=== PATIENT | male | born 1960 | race African-American/Black ===

== ENCOUNTER 2016-11-16 15:25 | Inpatient (IN) | payer OTHER ==
[2016-11-16 15:57] VITALS: BMI 25.1
--- NOTE | 2016-11-16 16:57 | HP ---
CIWA Score - CIWA Score Nausea/Vomitin Muscle Tremors: 3 Anxiety: 3 Agitation: 3 Paroxysmal Sweats: 2 Orientation: 0-Oriented Tacttile Disturbances: 2-Mild Itch/Numbness/Burn Auditory Disturbances: 2-Mild Harshness/Frighten Visual Disturbances: 2-Mild Sensitivity Headache: 2-Mild CIWA-Ar Total Score: 22 Admission ROS BHS - HPI Chief Complaint: I NEED HELP TO STOP DRINKING ALCOHOL,WITHDRAWAL SYMPTOM,LAST DETOX 08/24 LIAN KEN SYNCOPE ALCOHOL RELATED SEVERAL ADMISSIONS TO DETOX LONGEST PERIOD SOBRIETY 6 YEARS Allergies/Adverse Reactions: Allergies Allergy/AdvReac Type Severity Reaction Status Date / Time No Known Allergies Allergy Verified 11/16/16 17:02 - Ebola screening Have you traveled outside of the country in the last 21 days: No (N) Have you had contact with anyone from an Ebola affected area: No Have you been sick,other than usual withdrawal symptoms: No Do you have a fever: No - Review of Systems Constitutional: Loss of Appetite, Malaise, Night Sweats, Changes in sleep, Weakness, Unintentional Wgt. Loss EENT: reports: Nose Congestion Respiratory: reports: No Symptoms reported Cardiac: reports: Palpitations GI: reports: Diarrhea, Nausea, Abdominal cramping : reports: No Symptoms Reported Musculoskeletal: reports: Back Pain, Muscle Pain Neuro: reports: Headache, Tremors Endocrine: reports: No Symptoms Reported Hematology: reports: No Symptoms Reported Psychiatric: reports: No Sypmtoms Reported Patient History - Patient Medical History Hx Anemia: No Hx Asthma: No Hx Chronic Obstructive Pulmonary Disease (COPD): No Hx Cancer: No Hx Cardiac Disorders: No Hx Congestive Heart Failure: No Hx Hypertension: No Hx Hypercholesterolemia: No Hx Pacemaker: No HX Cerebrovascular Accident: No Hx Seizures: No Hx Dementia: No Hx Diabetes: No Hx Gastrointestinal Disorders: No Hx Liver Disease: No Hx Genitourinary Disorders: No Hx Sexually Transmitted Disorders: No Hx Renal Disease (ESRD): No Hx Thyroid Disease: No Hx Human Immunodeficiency Virus (HIV): No (LAST 2014 NEGATIVE) Hx Hepatitis C: No Hx Depression: No Hx Suicide Attempt: No Hx Bipolar Disorder: No Hx Schizophrenia: No Other Medical History: NO SUICIDAL,NO HOMICIDAL - Patient Surgical History Past Surgical History: No - PPD History Documented Results: Negative w/o proof Implanted On Prior [facility] Admission?: No PPD to be Administered?: Yes - Smoking Cessation Smoking history: Never smoked - Substance & Tx. History Hx Alcohol Use: Yes Hx Substance Use: No Substance Use Type: Alcohol Hx Substance Use Treatment: Yes (08/24 [facility]) - Substances Abused Alcohol Route: Oral Frequency: Daily Amount used: I PINT OF GIN/5 OF 40 OZS OF BEER Age of first use: 33 Date of Last Use: 11/16/16 Family Disease History - Family Disease History Family History: Denies Admission Physical Exam [facility] - Vital Signs Vital Signs: Vital Signs - 24 hr 11/16/16 15:55 Temperature 96.6 F L Pulse Rate 80 Respiratory 18 Rate Blood Pressure 141/90 - Physical General Appearance: Yes: Moderate Distress, Tremorous, Sweating, Anxious HEENTM: Yes: Nasal Congestion Respiratory: Yes: Lungs Clear Neck: Yes: Within Normal Limits Breast: Yes: Within Normal Limits Cardiology: Yes: Regular Rhythm, Regular Rate, S1, S2 Abdominal: Yes: Normal Bowel Sounds, Non Tender, Flat, Soft Genitourinary: Yes: Within Normal Limits Back: Yes: Muscle Spasm Musculoskeletal: Yes: Back pain, Muscle Pain Extremities: Yes: Tremors Neurological: Yes: bottom turning lathe tender II-XII NML intact, Fully Oriented, Alert, Motor Strength 5/5 Integumentary: Yes: Dry Lymphatic: Yes: Within Normal Limits - Diagnostic (1) Alcohol dependence with uncomplicated withdrawal Current Visit: Yes Status: Acute (2) Syncope Current Visit: Yes Status: Acute (3) Weight loss Current Visit: Yes Status: Acute Cleared for Admission [facility] - Detox or Rehab [facility] Level of Care: Medically Managed Detox Regimen/Protocol: Librium [facility] Breath Alcohol Content Breath Alcohol Content: 0 Urine Drug Screen - Results Drug Screen Negative: No Urine Drug Screen Results: BZO-Benzodiazepines, TCA-Tricyclic Antidepress
[2016-11-16] MEDS ORDERED: hydrOXYzine PAMOATE 25 MG CAPSULE (FP) PO PRN (17:11)
[2016-11-16] MEDS ORDERED: guaiFENesin/D-METHORPHAN HB 10 ML UNIT-DOSE CUPS PO PRN (17:11)
[2016-11-16] MEDS ORDERED: chlordiazePOXIDE HCL 25 MG CAPSULE PO ONE (17:11)
[2016-11-16] MEDS ORDERED: ACETAMINOPHEN 325 MG TABLET (FP) PO PRN (17:11)
[2016-11-16] MEDS ORDERED: MAGNESIUM HYDROX 2400MG/30ML ORAL SUSPENSION 30 ML CUP PO PRN (17:11)
[2016-11-16] MEDS ORDERED: chlordiazePOXIDE HCL 25 MG CAPSULE PO PRN (17:11)
[2016-11-16] MEDS ORDERED: MAGNESIUM CITRATE 300 ML BOTTLE PO PRN (17:11)
[2016-11-16] MEDS ORDERED: MENTHOL/PHENOL 1 EACH UD MM PRN (17:11)
[2016-11-16] MEDS ORDERED: IBUPROFEN 400 MG TABLET (FP) PO PRN (17:11)
[2016-11-16] MEDS ORDERED: P-EPHED 60MG/TRIPROLIDI 2.5MG TABLET PO PRN (17:11)
[2016-11-16] MEDS ORDERED: LOPERAMIDE HCL 2 MG CAPSULE PO PRN (17:11)
[2016-11-16] MEDS ORDERED: MAG HYDROX/AL HYDROX/SIMETH 30 ML UNIT-DOSE CUP PO PRN (17:11)
[2016-11-16] MEDS: chlordiazePOXIDE HCL 25 MG CAPSULE PO SCH (22:14)
[2016-11-16] MEDS: diphenhydrAMINE HCL 50 MG CAPSULE PO PRN (22:14)
[2016-11-16] MEDS: THIAMINE HCL 100 MG TABLET (FP) PO SCH (22:14)
[2016-11-17] MEDS: chlordiazePOXIDE HCL 25 MG CAPSULE PO SCH ×4 (05:28→22:07)
[2016-11-17 10:04] LABS: MCH 20.8 pg (25.7-33.7); MCHC 31.6 g/dl (32.0-35.9); MEAN CELL VOLUME 65.8 fl (80-96); PLATELET COUNT 242 K/MM3 (134-434); RDW 16.9 % (11.9-15.9)
[2016-11-17] MEDS: PRENATAL VITAMINS W/ FOLIC ACID TABLET (FP) PO SCH (10:10)
[2016-11-17 10:18] LABS: ALBUMIN 3.4 g/dl (3.4-5.0); ALK PHOS 59 U/L (45-117); ANION GAP 8 (8-16); BILIRUBIN,TOTAL 0.5 mg/dL (0.2-1.0); CALCIUM 8.4 mg/dL (8.5-10.1); CO2 29 mmol/L (21-32); CREATININE 0.9 mg/dL (0.7-1.3); GLUCOSE,RANDOM 99 mg/dL (74-106); SGOT/AST 14 U/L (15-37); SGPT/ALT 17 U/L (12-78); TOT PROT 6.6 g/dl (6.4-8.2)
[2016-11-17 11:30] LABS: ANISOCYTOSIS 1+; HYPOCHROMIA 1+; MICROCYTOSIS 1+; OVALOCYTES 1+; POIKILOCYTOSIS 1+; TARGET CELLS 1+
--- NOTE | 2016-11-17 11:36 | PN ---
[facility] CIWA - CIWA Score Nausea/Vomitin Muscle Tremors: 3 Anxiety: 3 Agitation: 2 Paroxysmal Sweats: 1-Minimal Palms Moist Orientation: 0-Oriented Tacttile Disturbances: 1-Very Mild Itch/Numbness Auditory Disturbances: 1-Very Mild Visual Disturbances: 1-Very Mild Sensitivity Headache: 2-Mild CIWA-Ar Total Score: 17 BHS Progress Note (SOAP) Subjective: ALERT,IRRITABLE,ANXIOUS,INTERRUPTED SLEEP,TREMOR Objective: 11/17/16 11:34 Vital Signs Temperature 96.4 F L 11/17/16 09:50 Pulse Rate 64 11/17/16 09:50 Respiratory Rate 20 11/17/16 09:50 Blood Pressure 144/91 11/17/16 09:50 O2 Sat by Pulse Oximetry (%) EKG NSR,NORMAL ECG Laboratory Last Values WBC 4.0 K/mm3 (4.0-10.0) 11/17/16 06:30 RBC 5.30 M/mm3 (4.00-5.60) 11/17/16 06:30 Hgb 11.0 GM/dL (11.7-16.9) L 11/17/16 06:30 Hct 34.9 % (35.4-49) L 11/17/16 06:30 MCV 65.8 fl (80-96) L 11/17/16 06:30 MCHC 31.6 g/dl (32.0-35.9) L 11/17/16 06:30 RDW 16.9 % (11.9-15.9) H 11/17/16 06:30 Plt Count 242 K/MM3 (134-434) 11/17/16 06:30 MPV 8.0 fl (7.5-11.1) 11/17/16 06:30 Hypochromic-Microcytic 1+ 11/17/16 06:30 Poikilocytosis 1+ 11/17/16 06:30 Anisocytosis 1+ 11/17/16 06:30 Microcytosis 1+ 11/17/16 06:30 Target Cells 1+ 11/17/16 06:30 Ovalocytes 1+ 11/17/16 06:30 Morphology Comment Slide scanned 11/17/16 06:30 Sodium 141 mmol/L (136-145) 11/17/16 06:30 Potassium 3.9 mmol/L (3.5-5.1) 11/17/16 06:30 Chloride 104 mmol/L (98-107) 11/17/16 06:30 Carbon Dioxide 29 mmol/L (21-32) 11/17/16 06:30 Anion Gap 8 (8-16) 11/17/16 06:30 BUN 8 mg/dL (7-18) 11/17/16 06:30 Creatinine 0.9 mg/dL (0.7-1.3) 11/17/16 06:30 Creat Clearance w eGFR > 60 (>60) 11/17/16 06:30 Random Glucose 99 mg/dL (74-106) 11/17/16 06:30 Calcium 8.4 mg/dL (8.5-10.1) L 11/17/16 06:30 Total Bilirubin 0.5 mg/dL (0.2-1.0) 11/17/16 06:30 AST 14 U/L (15-37) L 11/17/16 06:30 ALT 17 U/L (12-78) 11/17/16 06:30 Alkaline Phosphatase 59 U/L (45-117) 11/17/16 06:30 Total Protein 6.6 g/dl (6.4-8.2) 11/17/16 06:30 Albumin 3.4 g/dl (3.4-5.0) 11/17/16 06:30 RPR Titer Nonreactive (NONREACTIVE) 11/17/16 06:30 Assessment: 11/17/16 11:35 WITHDRAWAL SYMPTOM Plan: CONTINUE DETOX
[2016-11-17 16:41] LABS: URINE APPEARANCE CLEAR; URINE BILIRUBIN NEGATIVE (NEGATIVE); URINE BLOOD NEGATIVE (NEGATIVE); URINE COLOR YELLOW; URINE GLUCOSE (UA) NEGATIVE (NEGATIVE); URINE KETONE NEGATIVE (NEGATIVE); URINE NITRITE NEGATIVE (NEGATIVE); URINE PROTEIN NEGATIVE (NEGATIVE); URINE UROBILINOGEN NEGATIVE E.U./dl (0.2-1.0)
[2016-11-17 16:42] LABS: URINE LEUK ESTERASE TRACE (NEGATIVE)
[2016-11-17 16:47] LABS: URINE MUCUS RARE; URINE RBC <1 /hpf (0-3); URINE WBC 2 /hpf (3-5)
[2016-11-17] MEDS: diphenhydrAMINE HCL 50 MG CAPSULE PO PRN (22:07)
[2016-11-17] MEDS: THIAMINE HCL 100 MG TABLET (FP) PO SCH (22:07)
[2016-11-18] MEDS: chlordiazePOXIDE HCL 25 MG CAPSULE PO SCH ×3 (05:26→17:29)
--- NOTE | 2016-11-18 09:56 | PN ---
[facility] CIWA - CIWA Score Nausea/Vomitin Muscle Tremors: 3 Anxiety: 3 Agitation: 2 Paroxysmal Sweats: 1-Minimal Palms Moist Orientation: 0-Oriented Tacttile Disturbances: 1-Very Mild Itch/Numbness Auditory Disturbances: 1-Very Mild Visual Disturbances: 1-Very Mild Sensitivity Headache: 2-Mild CIWA-Ar Total Score: 17 BHS Progress Note (SOAP) Subjective: ALERT,IRRITABLE,ANXIOUS,INTERRUPTED SLEEP,TREMOR Objective: 11/18/16 09:55 Vital Signs Temperature 96.0 F L 11/18/16 09:33 Pulse Rate 70 11/18/16 09:33 Respiratory Rate 18 11/18/16 09:33 Blood Pressure 116/79 11/18/16 09:33 O2 Sat by Pulse Oximetry (%) Assessment: 11/18/16 09:55 WITHDRAWAL SYMPTOM Plan: CONTINUE DETOX,HISTORY OF ANEMIA USED TO TAKE IRON TO GIVE FERROUS SULFATE 325 MGS PO BID
[2016-11-18] MEDS: PRENATAL VITAMINS W/ FOLIC ACID TABLET (FP) PO SCH (10:10)
[2016-11-18] MEDS: FERROUS SO4 325 MG TABLET (FP) PO SCH ×2 (10:59→22:11)
[2016-11-18] MEDS: chlordiazePOXIDE 5 MG CAPSULE PO SCH (22:11)
[2016-11-18] MEDS: diphenhydrAMINE HCL 50 MG CAPSULE PO PRN (22:11)
[2016-11-18] MEDS: THIAMINE HCL 100 MG TABLET (FP) PO SCH (22:11)
[2016-11-19] MEDS: chlordiazePOXIDE 5 MG CAPSULE PO SCH ×3 (05:26→17:25)
--- NOTE | 2016-11-19 09:04 | PN ---
S Progress Note (SOAP) Subjective: ALERT,IRRITABLE,INTERRUPTED SLEEP Objective: 11/19/16 09:05 Vital Signs Temperature 96.9 F L 11/19/16 06:27 Pulse Rate 68 11/19/16 06:27 Respiratory Rate 16 11/19/16 06:27 Blood Pressure 115/82 11/19/16 06:27 O2 Sat by Pulse Oximetry (%) Assessment: 11/19/16 09:05 WITHDRAWAL SYMPTOM Plan: CONTINUE DETOX
[2016-11-19] MEDS: PRENATAL VITAMINS W/ FOLIC ACID TABLET (FP) PO SCH (10:10)
[2016-11-19] MEDS: FERROUS SO4 325 MG TABLET (FP) PO SCH ×2 (10:10→22:30)
--- NOTE | 2016-11-19 10:19 | EKG ---
Test Reason : Blood Pressure : / mmHG Vent. Rate : 064 BPM Atrial Rate : 064 BPM P-R Int : 164 ms QRS Dur : 080 ms QT Int : 378 ms P-R-T Axes : 061 048 041 degrees QTc Int : 389 ms NORMAL SINUS RHYTHM NORMAL ECG NO PREVIOUS ECGS AVAILABLE Confirmed by RILEY SAMAYOA, ELIAS ([id number]) on 11/19/2016 10:19:12 AM Referred By: Confirmed By:ELIAS LIN MD
[2016-11-19] MEDS: diphenhydrAMINE HCL 50 MG CAPSULE PO PRN (22:30)
[2016-11-19] MEDS: THIAMINE HCL 100 MG TABLET (FP) PO SCH (22:30)
[2016-11-19] MEDS: chlordiazePOXIDE HCL 10 MG CAPSULE PO SCH (22:31)
[2016-11-20] MEDS: chlordiazePOXIDE HCL 10 MG CAPSULE PO SCH (05:32)
[2016-11-20 06:39] VITALS: BP 110/73; PULSE 67; TEMP 97.6
--- NOTE | 2016-11-20 08:23 | PN ---
S Progress Note (SOAP) Subjective: ALERT,NO COMPLAINT Objective: 11/20/16 08:21 Vital Signs Temperature 97.6 F 11/20/16 06:39 Pulse Rate 67 11/20/16 06:39 Respiratory Rate 16 11/20/16 06:39 Blood Pressure 110/73 11/20/16 06:39 O2 Sat by Pulse Oximetry (%) Assessment: 11/20/16 08:21 DETOX COMPLETED,NO WITHDRAWAL SYMPTOM 11/20/16 08:22 Plan: DISCHARGE TODAY,FOLLOW IP WITH AFTER CARE PROGRAM ARRANGEMENT
--- NOTE | 2016-11-20 08:25 | DS ---
[facility] Detox Discharge Summary Admission Date: 11/16/16 Discharge Date: 11/20/16 - History Present History: Alcohol Dependence Additional Comments: FOLLOW UP WITH AFTER [facility] PROGRAM ARRANGEMENT AND PMD FOR MEDICAL PROBLEM Pertinent Past History: SYNCOPE WEIGHT LOSS ANEMIA - Physical Exam Results Vital Signs: Vital Signs Temperature 97.6 F 11/20/16 06:39 Pulse Rate 67 11/20/16 06:39 Respiratory Rate 16 11/20/16 06:39 Blood Pressure 110/73 11/20/16 06:39 O2 Sat by Pulse Oximetry (%) Pertinent Admission Physical Exam Findings: WITHDRAWAL SYMPTOM - Treatment Hospital Course: Detox Protocol Followed, Detoxed Safely, Responded well, Discharged Condition Good, Rehab Referral Accepted Patient has Accepted a Rehab Referral to: [facility] - Diagnosis (1) Alcohol dependence with uncomplicated withdrawal Current Visit: Yes Status: Acute (2) Syncope Current Visit: Yes Status: Acute (3) Weight loss Current Visit: Yes Status: Acute - AMA Did Patient Leave Against Medical Advice: No
== END 2016-11-20 08:55 | disposition home or self-care (01) | DRG 775 ==
LOC: YASAS 15:25 → Y3N 17:10
PROVIDERS: ADMIT Internal Medicine; ATTEND Internal Medicine
PROC: HZ2ZZZZ Detoxification Services for Substance Abuse Treatment (ICD-10-PCS; principal; 2016-11-16)
DX: F10.230 Alcohol dependence with withdrawal, uncomplicated (principal); Z86.79 Personal history of other diseases of the circulatory system; Z87.898 Personal history of other specified conditions
CPT/HCPCS: 36415; 80053; 81003; 81015; 85027; 86593; 93005; 93010

== ENCOUNTER 2019-10-11 17:29 | Inpatient (IN) | payer OTHER ==
[2019-10-11 18:16] VITALS: BMI 19.2
--- NOTE | 2019-10-11 20:55 | HP ---
"COWS - Scale Resting Pulse: 1= MO 81-100 Sweatin=Flushed/Facial Moisture Restless Observation: 1= Difficult to Sit Still Pupil Size: 1= Pupils >than Normal (Pupils = 3 mm) Bone or Joint Aches: 1= Mild Discomfort Runny Nose/ Eye Tearin= Nasal Congestion GI Upset > 30mins: 2= Nausea/Diarrhea (Diarrhea w/o vomiting) Tremor Observation: 4= Gross Tremor/Twitching Yawning Observation: 0= None Anxiety or Irritability: 1=Feels Anxious/Irritable Goose Flesh Skin: 0=Smooth Skin COWS Score: 14 CIWA Score Nausea/Vomitin-No Nausea/No Vomiting Muscle Tremors: 4-Moderate,w/Arms Extend Anxiety: 3 Agitation: 4-Moderately Restless Paroxysmal Sweats: 3 (Increased facial moisture) Orientation: 0-Oriented Tacttile Disturbances: 0-None Auditory Disturbances: 0-None Visual Disturbances: 0-None Headache: 0-None Present CIWA-Ar Total Score: 14 - Admission Criteria [facility] Guidelines: Admission for Medically Managed Detox: Requires at least one of the followin. CIWA greater than 12 2. Seizures within the past 24 hours 3. Delirium tremens within the past 24 hours 4. Hallucinations within the past 24 hours 5. Acute intervention needed for co occurring medical disorder 6. Acute intervention needed for co occurring psychiatric disorder 7. Severe withdrawal that cannot be handled at a lower level of care (continued vomiting, continued diarrhea, abnormal vital signs) requiring intravenous medication and/or fluids 8. Patient presents the following: CIWA greater than 12 Admission Criteria Met: Admission criteria met Admitting History and Physical - Smoking History Smoking history: Current every day smoker Aproximately how many cigarettes per day: 4 - Alcohol/Substance Use Hx Alcohol Use: Yes Admission ROS S - HPI Chief Complaint: States I'm here for detox. Allergies/Adverse Reactions: Allergies Allergy/AdvReac Type Severity Reaction Status Date / Time No Known Allergies Allergy Verified 10/11/19 18:03 History of Present Illness: Patient was seen in [place] ED earlier, where he presented for admission to detox. Told there were no beds available and arrangements were made for his to come to [facility]. No meds were given and no tests were performed during the ED visit. Discharged w/ dx: opioid abuse. 59 yo presents w/ alcohol and opioid use withdrawal and seeking detox. States I want to stop drinking and using drugs. Last [facility] visit 2017. MYNOR: 0.0 UTox: = MIKA/FEN/MOP/MTD/BAR/BZO Denies seizures. 2 blackous. Last 1 yr ago. 2 OD's. Last 3 months ago. States falls r/t intoxication. Alcohol use began at age 38. Currently drinks 3-40 oz beers daily x 5 years. States gets shakes after 1/2 day, if doesn't drink Xanax/Benzo use since age 59. Currently using x 3 months. States 4 sticks daily. Heroin use since age 43 and increased to in 50's. Now using 2-4 bags/day. Nasal. Has a Narcan kit. Methadone use since age 59. States has been buying out in street. States last used 3 days ago. Cocaine use since age 48. states uses 1-2x/month. Barbiturates - unsure - was taking anything and everything Denies nicotine use. PMHx: Denies. MHHx: Depression. Insomnia. Last saw a Psych 2 months ago - but not any longer - gets fro ED. States compliant w/ MH meds and last took haldol, zoloft and seroquel on 10/10/19. Denies thoughts of harming self or others. SHx: Domiciled. Unemployed. Denies legal issues. Patient Name: Epi Orona Date: 1960 Address: [address] [place] [address] Sex: Male Rx Written Rx Dispensed Drug Quantity Days Supply Prescriber Name 05/24/2019 05/24/2019 buprenorphine-naloxone 8-2 mg sl film 9 3 LaksLyle MD 05/24/2019 05/24/2019 chlordiazepoxide 10 mg capsule 35 3 LaksLyle MD Search Terms: Epi Rodriguez, 1960 Search Date: 10/11/2019 08:46:47 PM States Searched: [place], [place], [place], [place], [place], [place] The Drug Utilization Report below displays the controlled substance prescriptions, if any, that were dispensed in the indicated state(s). The information displayed on this report is compiled from requests submitted to other states' PMPs, and accurately reflects the information as returned by them. Blank ire[place] indicate data not provided by other state. This report was requested by: Barbie Monahan | Reference #: [id number] There are no results for the search terms that you entered. Exam Limitations: No Limitations - Ebola screening Have you traveled outside of the country in the last 21 days: No (N) Have you had contact with anyone from an Ebola affected area: No Have you been sick,other than usual withdrawal symptoms: No Do you have a fever: No - Review of Systems Constitutional: Chills, Changes in sleep (Difficulty falling and staying asleep) , Unintentional Wgt. Loss EENT: reports: Blurred Vision, Nose Congestion Respiratory: reports: No Symptoms reported Cardiac: reports: No Symptoms Reported GI: reports: Diarrhea (loose, villarreal colored), Indigestion (no recent exacerbation) : reports: No Symptoms Reported Musculoskeletal: reports: Back Pain (r/t withdrawal), Other (Bone pain.) Integumentary: reports: No Symptoms Reported Neuro: reports: Tremors Endocrine: reports: Increased Thirst Hematology: reports: No Symptoms Reported Psychiatric: reports: Mood/Affect Appropiate, Orientated x3, Agitated, Anxious, Depressed (Denies thoughts of harming self or others.) Patient History - Patient Medical History Hx Anemia: No Hx Asthma: Yes Hx Chronic Obstructive Pulmonary Disease (COPD): No Hx Cancer: No Hx Cardiac Disorders: No Hx Congestive Heart Failure: No Hx Hypertension: No Hx Hypercholesterolemia: No Hx Pacemaker: No HX Cerebrovascular Accident: No Hx Seizures: No Hx Dementia: No Hx Diabetes: No Hx Gastrointestinal Disorders: No Hx Liver Disease: No Hx Genitourinary Disorders: No Hx Sexually Transmitted Disorders: No Hx Renal Disease (ESRD): No Hx Thyroid Disease: No Hx Human Immunodeficiency Virus (HIV): No (LAST 2014 NEGATIVE) Hx Hepatitis C: No Hx Depression: No Hx Suicide Attempt: No Hx Bipolar Disorder: No Hx Schizophrenia: No - Patient Surgical History Past Surgical History: No Hx Neurologic Surgery: No Hx Cataract Extraction: No Hx Cardiac Surgery: No Hx Lung Surgery: No Hx Breast Surgery: No Hx Breast Biopsy: No Hx Abdominal Surgery: No Hx Appendectomy: No Hx Cholecystectomy: No Hx Genitourinary Surgery: No Hx Section: No Hx Orthopedic Surgery: No Anesthesia Reaction: No - PPD History Previous Implant?: Yes Documented Results: Negative w/proof Implanted On Prior R Admission?: Yes Date: 01/10/17 PPD to be Administered?: Yes - Smoking Cessation Smoking history: Former smoker Have you smoked in the past 12 months: No Aproximately how many cigarettes per day: 0 Cigars Per Day: 0 Hx Chewing Tobacco Use: No Initiated information on smoking cessation: No - Substance & Tx. History Hx Alcohol Use: Yes Hx Substance Use: Yes Substance Use Type: Alcohol, Cocaine, Heroin, Opiates, Tranquilizers Hx Substance Use Treatment: Yes (detox, rehabs, [facility]MTP - 10 years ago. ) - Substances abused Alcohol Substance route: Oral Frequency: Daily Amount used: (3) 40oz of beers Age of first use: 38 Date of last use: 10/10/19 Alprazolam (Xanax) Substance route: Oral Frequency: Daily Amount used: 4 sticks Age of first use: 59 Date of last use: 10/10/19 Heroin Substance route: Inhalation Frequency: Daily Amount used: 2 -3 bags Age of first use: 49 Date of last use: 10/10/19 Admission Physical Exam S - Vital Signs Vital Signs: Vital Signs - 24 hr 10/11/19 18:04 Temperature 97.4 F L Pulse Rate 94 H Respiratory 18 Rate Blood Pressure 145/93 - Physical General Appearance: Yes: Mild Distress, Thin, Tremorous, Sweating (Increased facial moisture), Anxious HEENTM: Yes: EOMI, Hearing grossly Normal, Normocephalic, Normal Voice, ROSIE ( Pupils = 3 mm), Pharynx Normal Respiratory: Yes: Lungs Clear (Pulse Ox = 97 %), Normal Breath Sounds, No Respiratory Distress Neck: Yes: No masses,lesions,Nodules, Supple Breast: Yes: Breast Exam Deferred Cardiology: Yes: Regular Rhythm, Regular Rate, S1, S2, Murmur Abdominal: Yes: Non Tender, Flat, Soft, Increased Bowel Sounds Genitourinary: Yes: Within Normal Limits Back: Yes: Normal Inspection Musculoskeletal: Yes: full range of Motion, Gait Steady Extremities: Yes: Normal Capillary Refill (Peripheral pulses +) Neurological: 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 (2) Opioid dependence with withdrawal Current Visit: Yes Status: Acute (3) Alcohol dependence with uncomplicated withdrawal Current Visit: Yes Status: Acute (4) Weight loss Current Visit: Yes Status: Chronic Cleared for Admission S - Detox or Rehab [facility] Level of Care: Medically Managed Detox Regimen/Protocol: Methadone/Valium Claeared for Rehab Admission: No Breathalyzer - Breathalyzer Breathalyzer: 0 Urine Drug Screen - Test Device Lot number: [id number] Expiration date: 06/08/21 - Control Is test valid?: Yes - Results Drug screen NEGATIVE: No Urine drug screen results: MIKA-Cocaine, FEN-Fentanyl, MOP-Opiates, MTD-Methadone , BAR-Barbiturates, BZO-Benzodiazepines Inpatient Rehab Admission - Rehab Decision to Admit Inpatient rehab admission?: No"
[2019-10-11] MEDS ORDERED: cloNIDine HCL 0.1 MG TABLET PO PRN (21:45)
[2019-10-11] MEDS ORDERED: BISMUTH SUBSALICYLATE 524 MG/30 ML UD PO PRN (21:45)
[2019-10-11] MEDS ORDERED: diazePAM 5 MG TABLET PO PRN (21:45)
[2019-10-11] MEDS ORDERED: ACETAMINOPHEN 325 MG TABLET (FP) PO PRN ×2 (21:45)
[2019-10-11] MEDS ORDERED: MENTHOL/PHENOL 1 EACH UD MM PRN (21:45)
[2019-10-11] MEDS ORDERED: MAG HYDROX/AL HYDROX/SIMETH 30 ML UNIT-DOSE CUP PO PRN (21:45)
[2019-10-11] MEDS ORDERED: IBUPROFEN 400 MG TABLET (FP) PO PRN (21:45)
[2019-10-11] MEDS ORDERED: MAGNESIUM CITRATE 300 ML BOTTLE PO PRN (21:45)
[2019-10-11] MEDS ORDERED: MAGNESIUM HYDROX 2400MG/30ML ORAL SUSPENSION 30 ML CUP PO PRN (21:45)
[2019-10-11] MEDS: THIAMINE HCL 100 MG TABLET (FP) PO SCH (22:31)
[2019-10-11] MEDS: diazePAM 5 MG TABLET PO SCH (22:46)
[2019-10-11] MEDS ORDERED: METHADONE HCL 10 MG TABLET (FOR DETOX USE ONLY) PO ONE (23:00)
[2019-10-12] MEDS: MELATONIN 5 MG TABLETS PO PRN ×2 (00:43→22:10)
[2019-10-12] MEDS: diazePAM 5 MG TABLET PO SCH ×3 (05:25→22:10)
[2019-10-12] MEDS ORDERED: METHADONE HCL 5 MG TABLET (FOR DETOX USE ONLY) PO ONE (10:00)
[2019-10-12] MEDS: PRENATAL VITAMINS W/ FOLIC ACID TABLET (FP) PO SCH (10:05)
[2019-10-12 10:36] LABS: ALBUMIN 3.4 g/dl (3.4-5.0); BILIRUBIN,TOTAL 0.6 mg/dL (0.2-1); BLOOD UREA NITROGEN 16.6 mg/dL (7-18); CALCIUM 8.8 mg/dL (8.5-10.1); CREATININE 0.9 mg/dL (0.55-1.3); HEMATOCRIT 29.7 % (35.4-49); HEMOGLOBIN 9.4 GM/dL (11.7-16.9); MCH 20.8 pg (25.7-33.7); MCHC 31.6 g/dl (32.0-35.9); MEAN CELL VOLUME 65.7 fl (80-96); MEAN PLT VOLUME 7.7 fl (7.5-11.1); PLATELET COUNT 237 K/MM3 (134-434); POTASSIUM 3.8 mmol/L (3.5-5.1); RBC 4.52 M/mm3 (4.00-5.60); RDW 16.9 % (11.9-15.9); TOT PROT 7.3 g/dl (6.4-8.2); WHITE BLOOD COUNT 4.6 K/mm3 (4.0-10.0)
--- NOTE | 2019-10-12 10:36 | EKG ---
Test Reason : Blood Pressure : / mmHG Vent. Rate : 077 BPM Atrial Rate : 077 BPM P-R Int : 140 ms QRS Dur : 084 ms QT Int : 366 ms P-R-T Axes : 079 070 071 degrees QTc Int : 414 ms NORMAL SINUS RHYTHM NORMAL ECG WHEN COMPARED WITH ECG OF 16-NOV-2016 18:28, NO SIGNIFICANT CHANGE WAS FOUND Confirmed by ELIAS LIN MD ([id number]) on 10/12/2019 10:36:02 AM Referred By: Confirmed By:ELIAS LIN MD
--- NOTE | 2019-10-12 11:27 | PN ---
S CIWA - CIWA Score Nausea/Vomitin-Mild Nausea/No Vomiting Muscle Tremors: 2 Anxiety: 2 Agitation: 2 Paroxysmal Sweats: 1-Minimal Palms Moist Orientation: 0-Oriented Tacttile Disturbances: 1-Very Mild Itch/Numbness Auditory Disturbances: 0-None Visual Disturbances: 0-None Headache: 1-Very Mild CIWA-Ar Total Score: 10 BHS COWS - Scale Resting Pulse: 0= [place] 80 or Below Sweatin= Chills/Flushing Restless Observation: 0= Sits Still Pupil Size: 0= Normal to Room Light Bone or Joint Aches: 1= Mild Discomfort Runny Nose/ Eye Tearin= None GI Upset > 30mins: 1= Stomach Cramp Tremor Observation of Outstretched Hands: 2= Slight Tremor Visible Yawning Observation: 0= None Anxiety or Irritability: 2=Irritable/Anxious Goose Flesh Skin: 3=Piloerection COWS Score: 10 S Progress Note (SOAP) Subjective: 59 YEARS OLD MALE ADMITTED ON 10/11/19 FOR ALCOHOL BENZO OPIATE WITHDRAWAL SX MANAGEMENT TREATED WITH VALIUM AND METHADONE DETOX REGIMEN ATE BREAKFAST FEELING TIRED prefers to stay in bed today limited conversation with staff Objective: 10/12/19 12:36 Vital Signs Temperature 97.2 F L 10/12/19 09:14 Pulse Rate 76 10/12/19 09:14 Respiratory Rate 16 10/12/19 09:14 Blood Pressure 98/59 L 10/12/19 09:14 O2 Sat by Pulse Oximetry (%) Laboratory Last Values WBC 4.6 K/mm3 (4.0-10.0) 10/12/19 08:00 RBC 4.52 M/mm3 (4.00-5.60) 10/12/19 08:00 Hgb 9.4 GM/dL (11.7-16.9) L 10/12/19 08:00 Hct 29.7 % (35.4-49) L 10/12/19 08:00 MCV 65.7 fl (80-96) L 10/12/19 08:00 MCH 20.8 pg (25.7-33.7) L 10/12/19 08:00 MCHC 31.6 g/dl (32.0-35.9) L 10/12/19 08:00 RDW 16.9 % (11.9-15.9) H 10/12/19 08:00 Plt Count 237 K/MM3 (134-434) 10/12/19 08:00 MPV 7.7 fl (7.5-11.1) 10/12/19 08:00 Sodium 141 mmol/L (136-145) 10/12/19 08:00 Potassium 3.8 mmol/L (3.5-5.1) 10/12/19 08:00 Chloride 104 mmol/L (98-107) 10/12/19 08:00 Carbon Dioxide 30 mmol/L (21-32) 10/12/19 08:00 Anion Gap 7 MMOL/L (8-16) L 10/12/19 08:00 BUN 16.6 mg/dL (7-18) 10/12/19 08:00 Creatinine 0.9 mg/dL (0.55-1.3) 10/12/19 08:00 Est GFR (CKD-EPI)AfAm 106.46 10/12/19 08:00 Est GFR (CKD-EPI)NonAf 91.86 10/12/19 08:00 Random Glucose 95 mg/dL (74-106) 10/12/19 08:00 Calcium 8.8 mg/dL (8.5-10.1) 10/12/19 08:00 Total Bilirubin 0.6 mg/dL (0.2-1) 10/12/19 08:00 AST 36 U/L (15-37) 10/12/19 08:00 ALT 30 U/L (13-61) 10/12/19 08:00 Alkaline Phosphatase 75 U/L (45-117) 10/12/19 08:00 Total Protein 7.3 g/dl (6.4-8.2) 10/12/19 08:00 Albumin 3.4 g/dl (3.4-5.0) 10/12/19 08:00 RPR Titer Nonreactive (NONREACTIVE) 10/12/19 08:00 lab noted Assessment: 10/12/19 12:36 alcohol benzo opiate withdrawal sx Plan: continue valium and methadone detox regimen
--- NOTE | 2019-10-12 13:50 | CONSULT ---
[facility] Psychiatric Consult - Data Date of interview: 10/12/19 Admission source: [facility] Identifying data: Readmission to [facility] for this 59 y/o AA male self- referred for detoxification (SAMARA issues : alcohol, xanax, cocaine, nicotine, heroin). Interviewed at [address] [place] [address]. Patient is , father of three, domiciled , unemployed and supported on SSI benefits. 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 Substance Abuse History: Discussed with patient. See current [facility] report for details : Smoking history: Former smoker. Have you smoked in the past 12 months : No. Aproximately how many cigarettes per day: 0. Cigars Per Day: 0. Hx Chewing Tobacco Use: No. Initiated information on smoking cessation: No. - Substance & Tx. History. Hx Alcohol Use: Yes. Hx Substance Use: Yes. Substance Use Type: Alcohol, Cocaine, Heroin, Opiates, Tranquilizers. Hx Substance Use Treatment: Yes (detox, rehabs, [facility] - 10 years ago. ). - Substances abused. Alcohol. Substance route: Oral. Frequency: Daily. Amount used: (3) 40oz of beers. Age of first use: 38. Date of last use: . Alprazolam (Xanax). Substance route: Oral. Frequency: Daily. Amount used: 4 sticks. Age of first use: 59. Date of last use: 10/10/19. Heroin. Substance route: Inhalation. Frequency: Daily. Amount used: 2 -3 bags. Age of first use: 49. Date of last use: 10/10/19 Medical History: Bronchial asthma. Psychiatric History: Patient endorses history of " a few " psychiatric hospitalizations ([facility], [facility], [facility]). Mr Jeannette reports that he has been diagnosed with Schizoaffective Disorder. Currently maintained on a regimen of haloperidol 10 mg /bid + seroquel 100 mg/hs + zoloft 100 mg/day. NOT taken for " a couple of days ". Patient admits to sub-optimal adherence to [facility] care. In fact, this patient does not have a psychiatrist for his aftercare, due to his preference for CPE[facility] settings that he uses for medications refills. Denies history of suicide attempts. Physical/Sexual Abuse/Trauma History: Patient denies. Additional Comment: Urine drug screen results: MIKA-Cocaine, FEN-Fentanyl, MOP- Opiates, MTD-Methadone, BAR-Barbiturates, BZO-Benzodiazepines. Noted. Mental Status Exam - Mental Status Exam Alert and Oriented to: Time, Place, Person Cognitive Function: Grossly Intact Patient Appearance: Unkempt, Disheveled Mood: Nervous, Withdrawn Affect: Mood Congruent, Constricted Patient Behavior: Fatigued, Appropriate, Cooperative Speech Pattern: Clear, Appropriate Voice Loudness: Normal Thought Process: Goal Oriented Thought Disorder: Not Present Hallucinations: Denies Suicidal Ideation: Denies Homicidal Ideation: Denies Insight/Judgement: Poor Sleep: Poorly, Difficulty falling asleep Appetite: Good Muscle strength/Tone: Normal Gait/Station: Normal Psychiatric Findings - Problem List ([place] 1, 2,3) (1) Alcohol dependence with uncomplicated withdrawal Status: Acute (2) Opioid dependence with withdrawal Status: Acute (3) Benzodiazepine dependence Status: Chronic (4) Cocaine use disorder Status: Chronic (5) History of schizoaffective disorder Status: Chronic (6) Substance induced mood disorder Status: Chronic (7) Insomnia Status: Chronic (8) Non-compliance Status: Chronic - Initial Treatment Plan Initial Treatment Plan: Psychoeducation. Sleep hygiene. Detoxification. NA/AA meetings. Resumed : haldol 5 mg po hs + zoloft 100 mg po daily. Side effects/ benefits of these drugs are discussed with the patient. Medications are verified via conversation with pharmacist at [facility] ([phone]) : confirmed refills for haloperidol 10 mg/bid + zoloft 100 mg/day + seroquel 100 mg/hs (7-day supply issued on 09/29/2019). Discussed risk of EPS (akathisia, dystonias, dyskinesias, akinesia), neuroleptic malignant syndrome, sexual dysfunction, suicidal ideation, metabolic syndrome, sedation and cardiovascular adverse events. Mr Machado is in agreement with this plan of care. Gave verbal consent to MD. Lima.
[2019-10-12] MEDS ORDERED: QUEtiapine FUMARATE 50 MG TABLET PO SCH (22:00)
[2019-10-12] MEDS: HALOPERIDOL 5 MG TABLET (FP) PO SCH (22:10)
[2019-10-12] MEDS: THIAMINE HCL 100 MG TABLET (FP) PO SCH (22:10)
[2019-10-13] MEDS: diazePAM 5 MG TABLET PO SCH ×2 (05:49→17:22)
[2019-10-13] MEDS ORDERED: SERTRALINE HCL 50 MG TABLET (FP) PO SCH (10:00)
[2019-10-13] MEDS ORDERED: METHADONE HCL 10 MG TABLET (FOR DETOX USE ONLY) PO ONE (10:00)
[2019-10-13] MEDS: PRENATAL VITAMINS W/ FOLIC ACID TABLET (FP) PO SCH (10:10)
--- NOTE | 2019-10-13 10:22 | PN ---
S CIWA - CIWA Score Nausea/Vomitin-No Nausea/No Vomiting Muscle Tremors: 2 Anxiety: 2 Agitation: 2 Paroxysmal Sweats: No Perspiration Orientation: 0-Oriented Tacttile Disturbances: 0-None Auditory Disturbances: 0-None Visual Disturbances: 0-None Headache: 0-None Present CIWA-Ar Total Score: 6 BHS COWS - Scale Resting Pulse: 0= [place] 80 or Below Sweatin= Chills/Flushing Restless Observation: 0= Sits Still Pupil Size: 0= Normal to Room Light Bone or Joint Aches: 1= Mild Discomfort Runny Nose/ Eye Tearin= None GI Upset > 30mins: 0= None Tremor Observation of Outstretched Hands: 1= Tremor [place], Not Seen Yawning Observation: 1= 1-2x During Session Anxiety or Irritability: 1=Feels Anxious/Irritable Goose Flesh Skin: 0=Smooth Skin COWS Score: 5 BHS Progress Note (SOAP) Subjective: 59 years old male admitted on 10/11/19 for alcohol benzo opiate withdrawal sx management treated with valium and methadone detox regimen patient tolerated well feeling better less tremor discuss medication assisted treatment program and 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 pharmacy Objective: 10/13/19 10:19 Vital Signs Temperature 97.4 F L 10/13/19 09:07 Pulse Rate 69 10/13/19 09:07 Respiratory Rate 16 10/13/19 09:07 Blood Pressure 107/71 10/13/19 09:07 O2 Sat by Pulse Oximetry (%) Laboratory Last Values WBC 4.6 K/mm3 (4.0-10.0) 10/12/19 08:00 RBC 4.52 M/mm3 (4.00-5.60) 10/12/19 08:00 Hgb 9.4 GM/dL (11.7-16.9) L 10/12/19 08:00 Hct 29.7 % (35.4-49) L 10/12/19 08:00 MCV 65.7 fl (80-96) L 10/12/19 08:00 MCH 20.8 pg (25.7-33.7) L 10/12/19 08:00 MCHC 31.6 g/dl (32.0-35.9) L 10/12/19 08:00 RDW 16.9 % (11.9-15.9) H 10/12/19 08:00 Plt Count 237 K/MM3 (134-434) 10/12/19 08:00 MPV 7.7 fl (7.5-11.1) 10/12/19 08:00 Sodium 141 mmol/L (136-145) 10/12/19 08:00 Potassium 3.8 mmol/L (3.5-5.1) 10/12/19 08:00 Chloride 104 mmol/L (98-107) 10/12/19 08:00 Carbon Dioxide 30 mmol/L (21-32) 10/12/19 08:00 Anion Gap 7 MMOL/L (8-16) L 10/12/19 08:00 BUN 16.6 mg/dL (7-18) 10/12/19 08:00 Creatinine 0.9 mg/dL (0.55-1.3) 10/12/19 08:00 Est GFR (CKD-EPI)AfAm 106.46 10/12/19 08:00 Est GFR (CKD-EPI)NonAf 91.86 10/12/19 08:00 Random Glucose 95 mg/dL (74-106) 10/12/19 08:00 Calcium 8.8 mg/dL (8.5-10.1) 10/12/19 08:00 Total Bilirubin 0.6 mg/dL (0.2-1) 10/12/19 08:00 AST 36 U/L (15-37) 10/12/19 08:00 ALT 30 U/L (13-61) 10/12/19 08:00 Alkaline Phosphatase 75 U/L (45-117) 10/12/19 08:00 Total Protein 7.3 g/dl (6.4-8.2) 10/12/19 08:00 Albumin 3.4 g/dl (3.4-5.0) 10/12/19 08:00 RPR Titer Nonreactive (NONREACTIVE) 10/12/19 08:00 lab noted 10/13/19 10:20 ferrous sulfate supplement Assessment: 10/13/19 10:21 alcohol benzo opiate withdrawal sx 10/13/19 10:22 mild anemia Plan: continue valium and methadone detox regimen ferrous sulfate
[2019-10-13] MEDS ORDERED: FERROUS SO4 325 MG TABLET (FP) PO SCH (10:30)
[2019-10-13 12:17] LABS: URINE APPEARANCE CLEAR; URINE BILIRUBIN NEGATIVE (NEGATIVE); URINE COLOR YELLOW; URINE GLUCOSE (UA) NEGATIVE (NEGATIVE); URINE KETONE NEGATIVE (NEGATIVE); URINE LEUK ESTERASE NEGATIVE (NEGATIVE); URINE NITRITE NEGATIVE (NEGATIVE); URINE PROTEIN NEGATIVE (NEGATIVE); URINE UROBILINOGEN 0.2 mg/dL (0.2-1.0)
[2019-10-13] MEDS: THIAMINE HCL 100 MG TABLET (FP) PO SCH (22:11)
[2019-10-13] MEDS: HALOPERIDOL 5 MG TABLET (FP) PO SCH (22:11)
[2019-10-13] MEDS: MELATONIN 5 MG TABLETS PO PRN (22:12)
[2019-10-14] MEDS ORDERED: METHADONE HCL 5 MG TABLET (FOR DETOX USE ONLY) PO ONE (06:00)
[2019-10-14] MEDS ORDERED: diazePAM 5 MG TABLET PO ONE (06:00)
--- NOTE | 2019-10-14 09:19 | DS ---
[facility] Detox Discharge Summary Admission Date: 10/11/19 Discharge Date: 10/14/19 - History Present History: Alcohol Dependence, Opioid Dependence Additional Comments: Patient medically stable, tolerated detox well. Patient to follow up with primary care provider and out patient referral. Pertinent Past History: Patient Aox3 no acute distress EENT WNL Full ROM no gait disturbance no edema or erythema - Physical Exam Results Vital Signs: Vital Signs Temperature 97.3 F L 10/14/19 06:14 Pulse Rate 58 L 10/14/19 06:14 Respiratory Rate 18 10/14/19 06:14 Blood Pressure 124/76 10/14/19 06:14 O2 Sat by Pulse Oximetry (%) - Treatment Hospital Course: Detox Protocol Followed, Detoxed Safely, Responded well, Discharged Condition Good, Rehab Referral Accepted Patient has Accepted a Rehab Referral to: out patient - Medication Discharge Medications: Ambulatory Orders Ferrous Sulfate [Feosol] 325 mg PO BID #[id number] 11/20/16 Haloperidol [Haldol -] 10 mg PO DAILY 10/11/19 Sertraline HCl [Zoloft] 100 mg PO DAILY 10/11/19 Naloxone HCl [Narcan] 4 mg NS ASDIR PRN #1 spray 10/12/19 - Diagnosis (1) Alcohol dependence with uncomplicated withdrawal Status: Acute (2) Anemia Status: Acute (3) Opioid dependence with withdrawal Status: Acute - AMA Did Patient Leave Against Medical Advice: No
[2019-10-14 09:40] VITALS: BP 115/72; PULSE 71; TEMP 96.7
== END 2019-10-14 09:21 | disposition home or self-care (01) | DRG 773 ==
LOC: YASAS 17:29 → Y3N 22:05
PROVIDERS: ADMIT Allergy & Immunology; ATTEND Allergy & Immunology
PROC: HZ2ZZZZ Detoxification Services for Substance Abuse Treatment (ICD-10-PCS; principal; 2019-10-11)
DX: F10.230 Alcohol dependence with withdrawal, uncomplicated (principal); F11.23 Opioid dependence with withdrawal; F13.230 Sedative, hypnotic or anxiolytic dependence with withdrawal, uncomplicated; F14.10 Cocaine abuse, uncomplicated; F25.9 Schizoaffective disorder, unspecified; F19.24 Other psychoactive substance dependence with psychoactive substance-induced mood disorder; G47.00 Insomnia, unspecified; J45.909 Unspecified asthma, uncomplicated; Z91.81 History of falling; Z91.19 Patient's noncompliance with other medical treatment and regimen
CPT/HCPCS: 36415; 80053; 80173; 81003; 85027; 86593; 93005; 93010